=== PATIENT | male | born 1935 | race Two or more races ===

== ENCOUNTER 2016-12-08 12:50 | Inpatient (IN) | payer OTHER, MEDICARE ==
[~2016-12-08] VITALS: Ht 186.7 cm; Wt 114.8 kg
[2016-12-13] MEDS ORDERED: HYDR-3288 PO (07:06)
[2016-12-13] MEDS ORDERED: ENOX40P SQ (07:07)
[2016-12-13] MEDS ORDERED: ASPI81CH37 CHEW (07:07)
[2016-12-13] MEDS ORDERED: CHLORHEXIDINE GLUCONATE 2 % 1 PACK (2 CLOTHS) TOPICAL PRN (07:30)
[2016-12-13] MEDS ORDERED: INSULIN HUMAN REGULAR 1,000 UNITS/10 ML VIAL SQ PRN (07:30)
[2016-12-13] MEDS ORDERED: SODIUM CHLORID 0.9% 500 ML IV PRN (07:30)
[2016-12-13] MEDS ORDERED: POVIDONE IODINE 5% (ANTISEPSIS KIT) 4 APPLICATIONS EACH NARE PRN (07:30)
[2016-12-13] MEDS ORDERED: METOPROLOL TARTRATE 25 MG TAB PO PRN (07:30)
[2016-12-13] MEDS ORDERED: DEXAMETHASONE SOD PHOS 20 MG/5 ML VIAL IV SCH (07:30)
[2016-12-13] MEDS ORDERED: LACTATED RINGER'S 1000 ML IV PRN (07:30)
[2016-12-13] MEDS ORDERED: BENA10TA PO (07:43)
[2016-12-13] MEDS ORDERED: LEVO88TA2 PO (07:43)
[2016-12-13] MEDS ORDERED: MOBI7.5T PO (07:43)
[2016-12-13] MEDS ORDERED: ROPI0.25 PO (07:43)
[2016-12-13] MEDS ORDERED: OMEP40CA2 PO (07:43)
[2016-12-13] MEDS ORDERED: GABA300C5 PO (07:43)
[2016-12-13] MEDS ORDERED: APIX2.5T PO ×2 (07:43→10:54)
[2016-12-13] MEDS ORDERED: VANCOMYCIN 1000 MG/NS 250 ML (for <70 kg) IV SCH ×2 (07:45)
[2016-12-13] MEDS ORDERED: SODIUM CHLORIDE 0.9% IV SCH (07:45)
[2016-12-13] MEDS ORDERED: CHLORHEXIDINE GLUCONATE 4% SOLN 120 ML BTL TOPICAL SCH (07:45)
[2016-12-13] MEDS ORDERED: TRANEXAMIC ACID IV SCH (07:45)
[2016-12-13] MEDS ORDERED: ceFAZolin 1,000 MG/NS 100 ML IV SCH ×2 (07:45)
[2016-12-13] MEDS ORDERED: TRANEXAMIC PERI-ARTICULAR 3,000 MG/NS 100 ML P-ARTICULR SCH ×2 (07:45)
[2016-12-13] MEDS ORDERED: POVIDONE IODINE 7.5% SCRUB 118 ML BOTTLE TOPICAL SCH (07:45)
[2016-12-13] MEDS ORDERED: ROPIVACAINE PERI-ARTICULAR INJECTION. P-ARTICULR SCH ×5 (07:45)
[2016-12-13 07:59] VITALS: BP 177/79; PULSE 62; RESP 20; TEMP 99.3; O2SAT 99
[2016-12-13] MEDS ORDERED: NITR0.4S SL (08:33)
[2016-12-13] MEDS ORDERED: METO25TA3 PO (08:33)
[2016-12-13] MEDS ORDERED: GLIM1TAB PO (08:33)
[2016-12-13] MEDS ORDERED: MISC1CAP2 PO (08:33)
[2016-12-13] MEDS ORDERED: HYDR25TA5 PO (08:33)
[2016-12-13] MEDS ORDERED: CHOL1CAP6 PO (08:33)
[2016-12-13] MEDS ORDERED: TAMS0.4C4 PO (08:33)
[2016-12-13] MEDS: ceFAZolin 2 GM PREMIX 50 ML IV SCH ×2 (08:50→12:37)
[2016-12-13] MEDS ORDERED: PROPOFOL 200 MG/20 ML AMP IV ONE (09:10)
[2016-12-13] MEDS ORDERED: ePHEDrine/NS 25 MG/5 ML SYR IV ONE (09:11)
[2016-12-13] MEDS ORDERED: LACTATED RINGER'S 1000 ML INJ 1,000 ML IV ONE (09:11)
[2016-12-13 09:43] LABS: HEMATOCRIT 29.6 % (39.0-51.0); REVIEW FLAG FINAL
[2016-12-13] MEDS ORDERED: GENTAMICIN SULFATE 80 MG/2 ML VIAL ONE (09:43)
[2016-12-13] MEDS ORDERED: BUPIVACAINE LIPOSOME PF 1.3% 20 ML VIAL ONE (09:45)
[2016-12-13] MEDS ORDERED: diphenhydrAMINE HCL 50 MG/ML VIAL IV PRN (11:00)
[2016-12-13] MEDS ORDERED: ONDANSETRON HCL 4 MG/2 ML VIAL IVP PRN (11:00)
[2016-12-13] MEDS ORDERED: HYDROmorphone HCL PF 2 MG/ML VIAL IV PRN (11:00)
[2016-12-13] MEDS ORDERED: ALUMINUM/MAGNESIUM/SIMETH 30 ML CUP PO PRN (11:00)
[2016-12-13] MEDS ORDERED: NALOXONE HCL 0.4 MG/ML AMP IV PRN (11:00)
[2016-12-13] MEDS ORDERED: BISACODYL 10 MG SUPP RECTAL PRN (11:00)
[2016-12-13] MEDS ORDERED: Post-op Orders (for Pharmacy) MISC XX ONE (11:00)
[2016-12-13] MEDS ORDERED: ZOLPIDEM TARTRATE 5 MG TAB PO PRN (11:00)
[2016-12-13] MEDS ORDERED: SODIUM CHLORIDE 0.9% FLUSH 10 ML FLUSH IV FLUSH PRN (11:15)
[2016-12-13] MEDS: GABAPENTIN 300 MG CAP PO SCH ×2 (13:00→17:34)
[2016-12-13] MEDS: SODIUM CHLOR 0.9% 1000 ML INJ 1,000 ML IV SCH ×2 (13:25→19:31)
--- NOTE | 2016-12-13 13:35 | HHI.DCPOC ---
Discharge Care Plan Diagnosis: (1) Primary localized osteoarthrosis, lower leg Your Health Problems Are: Difficulty with ADL Goals to Promote Your Health * To prevent worsening of your condition and complications * To maintain your health at the optimal level Directions to Meet Your Goals Take your medications as prescribed Follow your dietary instruction Follow activity as directed Keep your appointments as scheduled Take your immunizations and boosters as scheduled If your symptoms worsen call your PCP, if no PCP go to Urgent Care Center or Emergency Room Smoking is Dangerous to Your Health. Avoid second hand smoke Call the 24-hour hour crisis hotline for domestic abuse at Liang Iglesias December 13, 2016 13:35
--- NOTE | 2016-12-13 13:37 | HHI.FF ---
Face to Face Verification Diagnosis: (1) Primary localized osteoarthrosis, lower leg Physical Therapy Gait training, Safety evaluation, Transfer training, bed to chair Knee: Total knee, Protocol: Right, Full weight bearing Right LE Weight Bearing: WB as tolerated Nursing Nursing: Dressing changes Dressing Changes: Daily dressing change I have seen patient Sebastian Cunningham on 12/13/16. My clinical findings support the need for the requested home health care services because: Limited ability to care for self High risk of falls I certify that my clinical findings support that this patient is homebound because: Post-op weakness Unsteady gait/balance Liang Iglesias December 13, 2016 13:37
[2016-12-13] MEDS ORDERED: MISC-163 (13:39)
[2016-12-13] MEDS ORDERED: CPMMACHINE (13:39)
[2016-12-13] MEDS ORDERED: WALKER WHEELS/F1 MIS (13:39)
--- NOTE | 2016-12-13 13:58 | RADRPT ---
EXAM DATE/TIME: 12/13/2016 13:22 [place] COMPARISON: No previous studies available for comparison. INDICATIONS : Post op right knee replacement. MEDICAL HISTORY : None. SURGICAL HISTORY : None. ENCOUNTER: Initial ACUITY: 1 day PAIN SCORE: Non-responsive. LOCATION: Right knee. FINDINGS: Patient is status post placement of a right knee prosthesis. There is good position and alignment of the prosthesis and bony structures. The bony structures are grossly intact. Postsurgical changes are present. CONCLUSION: Good position and alignment on this postoperative examination. Pola Christopher MD on December 13, 2016 at 13:55 Board Certified Radiologist. This report was verified electronically.
[2016-12-13 14:00] VITALS: BP 149/68; PULSE 64; RESP 18; TEMP 96.1; O2SAT 97
--- NOTE | 2016-12-13 17:33 | MP ---
cc: SAUL VALENTINE M.D. DATE OF SURGERY 12/13/2016 PREOPERATIVE DIAGNOSIS Right knee failed arthroplasty. POSTOPERATIVE DIAGNOSES Right knee failed arthroplasty. PROCEDURE Revision right total knee arthroplasty. SURGEON Dr. Saul Valentine. ENDOSCOPY TECHNICAN RADHA Brar ANESTHESIA General with an adductor canal block. ESTIMATED BLOOD LOSS 50 mL. COMPLICATIONS None. TOURNIQUET TIME 67 minutes at 250 mmHg. IMPLANTS USED DePuy Attune size 7 posterior stabilized femoral component, size 8 rotating platform tibia baseplate, size 5 mm polyethylene tibial insert, size 38 patella. JUSTIFICATION The patient is an 81-year male who has history right knee unicompartmental arthroplasty. He has had increasing pain in regards to his knee with failed conservative treatment over three months duration. Clinical exam reveals as well as x-rays confirmed the above-named findings. The patient counseled as to the risks, benefits and alternatives of the above-named proposed surgical procedure. The risks were discussed which include but not limited to anesthesia, bleeding, infection, damage to nerves, blood vessels, pain, stiffness, failure of components, blood clots, pulmonary embolism and even . The patient's pain is severe, he favored the benefits over the risks. He did wish to proceed with surgery. PROCEDURE IN DETAILS A written consent was obtained. The patient was identified by name, taken to the operating room and placed supine on the operating table. General anesthesia was administered as well as 2 grams of IV Ancef and 1 gram of IV vancomycin. A well-padded tourniquet placed on the right thigh. The right lower extremity prepped and draped using as isopropyl alcohol, Hibiclens solution and Chloraprep solution. After a time-out was performed an Esmarch bandage was used to exsanguinate the right lower extremity. Tourniquet inflated to 250 mmHg. A longitudinal incision was made over the anterior aspect of right knee. A medial parapatellar arthrotomy was performed. The patella was everted. A patellar resection guide was used to resect 9 mm of patella. A size 38 mm guide was placed. Three drill holes were placed and 38 mm trial fit well. Attention was turned the femur where an intramedullary guide brandon was placed within the femoral shaft. The distal femoral guide was set to remove 10 mm of distal femur, 5 degrees off the anatomic valgus axis alignment. An oscillating saw was used to perform a distal femoral cut. The femoral component arthroplasty was still in place and I had to resect 2 additional millimeters of distal femur in order to undermine the femoral component. The femoral component was then removed after primary cutting with the oscillating saw with the assistance of an osteotome and a bone tamp. Attention was turned to the tibia where an extramedullary tibial guide was placed. The guide was set to initially resect 7 mm of the lowest portion of the medial tibial plateau. The tibial guide set in place and tibia cut was initiated. Patella was not deepened off underneath the tibia baseplate and I resected 2 additional millimeters of tibia in order to get underneath the tibia baseplate with the oscillating saw. An elevator as well as a tamp was then used to remove the tibial component as well. A 5-mm spacer block showed full extension. Attention was turned back to the femur where the AP sizing block measured a size 7. The anterior reference 3 degree external rotation guide was used to pin a size [address]. Two anterior posterior chamfer cuts performed, size 7 ____ (3:01) with an oscillating saw. The medial and lateral meniscus remnants were removed as well as bone and soft tissue debris from the posterior portion of the knee. A size 8 tibia baseplate was pinned in place. Tibia was drilled (3:12) components were evaluated and final components were cemented in place. The 5 mm tibial insert the leg achieved full extension to 0 degrees and flexion 140. No evidence of tibial lift-off. Varus-valgus balance appeared appropriate and symmetric. The patella was noted to track centrally. The tourniquet was deflated. Bovie cautery was used for hemostasis. The knee was thoroughly irrigated again with sterile saline pulse lavage antibiotic solution. The arthrotomy incision was closed with #1 Vicryl suture. The subcutaneous layer with 2-0 Vicryl suture. Skin was closed Dermabond. Sterile dressing applied. The patient tolerated the procedure well. No intraoperative complications noted. Eduardo Iglesias, physician special events assistant-certified, was present during the entire surgical procedure to include patient positioning and the procedure itself. The medical necessity of physician special events assistant was indicated in this case due to the complexity of the procedure. He assisted with appropriate retraction of muscle, tendon, bone and neurovascular structures. He assisted with preparation of bone cuts and implantation of the prosthetic replacement. MD LOPEZ Boyer/FLAVIO /12:37 PM /5:05 PM
[2016-12-13] MEDS: ACETAMINOPHEN/HYDROcodone 325 MG/7.5 MG TAB PO PRN ×2 (17:40→21:47)
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
[2016-12-13 19:29] VITALS: O2SAT 99
[2016-12-13] MEDS: TAMSULOSIN HCL 0.4 MG CAP PO SCH (19:30)
[2016-12-13] MEDS: GLIMEPIRIDE 1 MG TAB PO SCH (19:31)
[2016-12-13] MEDS: METOPROLOL TARTRATE 25 MG TAB PO SCH (19:31)
[2016-12-13] MEDS: LISINOPRIL 10 MG TAB PO SCH (19:31)
[2016-12-13] MEDS: SODIUM CHLORIDE 0.9% FLUSH 10 ML FLUSH IV FLUSH SCH (19:31)
[2016-12-13 19:50] VITALS: BP 165/77; PULSE 72; RESP 18; TEMP 96.8; O2SAT 100
[2016-12-14] VITALS (10 sets, daily range): BP systolic 134–165; BP diastolic 61–85; PULSE 57–79; RESP 17–18; TEMP 97.5–98.6; O2SAT 94–99
[2016-12-14] MEDS: LEVOTHYROXINE SODIUM 88 MCG TAB PO SCH (05:19)
[2016-12-14] MEDS: SODIUM CHLOR 0.9% 1000 ML INJ 1,000 ML IV SCH ×3 (05:30→21:54)
[2016-12-14] MEDS ORDERED: DEXTROSE 50% IN WATER 50 ML VIAL(D50) IV PUSH PRN (06:15)
[2016-12-14] MEDS ORDERED: GLUCAGON 1 MG/ML VIAL OTHER PRN (06:15)
[2016-12-14 07:23] LABS: HEMATOCRIT 21.7 % (39.0-51.0); MEAN CORPUSCULAR HEMOGLOBIN 26.2 PG (27.0-34.0); MEAN CORPUSCULAR HGB CONC 33.6 % (32.0-36.0); PLATELET COUNT 212 TH/MM3 (150-450); RED BLOOD COUNT 2.79 MIL/MM3 (4.50-5.90); RED CELL DISTRIBUTION WIDTH 17.2 % (11.6-17.2); REVIEW FLAG FINAL; WHITE BLOOD COUNT 7.7 TH/MM3 (4.0-11.0)
[2016-12-14 07:53] LABS: BICARBONATE 21.7 MEQ/L (21.0-32.0); POTASSIUM 4.3 MEQ/L (3.5-5.1)
--- NOTE | 2016-12-14 08:17 | PD.ORT.PN ---
Subjective Post Op Day #: 1 Subjective Remarks knee is sore. Objective Vitals Vital Signs Date Time Temp Pulse Resp B/P Pulse Ox O2 Delivery O2 Flow Rate FiO2 12/14/16 04:25 98.0 71 17 145/66 98 12/14/16 00:00 97.7 77 17 152/70 99 12/13/16 19:50 96.8 72 18 165/77 100 12/13/16 19:29 99 Nasal Cannula 2.00 12/13/16 14:00 96.1 64 18 149/68 97 12/13/16 13:30 76 16 146/61 97 Nasal Cannula 2 12/13/16 13:15 77 16 141/62 99 Nasal Cannula 2 12/13/16 13:00 82 16 135/63 100 Simple Mask 8 12/13/16 12:57 97.8 90 16 130/56 99 Simple Mask 8 I/O 12/13/16 12/13/16 12/13/16 12/14/16 12/14/16 12/14/16 06:59 14:59 22:59 06:59 14:59 22:59 Intake Total 1000 ml 1473 ml 1507 ml Output Total 200 ml 675 ml 400 ml Balance 800 ml 798 ml 1107 ml Intake Oral 840 ml 480 ml IV Total 633 ml 1027 ml Other 1000 ml Output Urine Total 150 ml 675 ml 400 ml Estimated Blood Loss 50 ml # Bowel Movements 0 0 Result Diagram: 12/14/16 0557 12/14/16 0557 Imaging Last 24 hours Impressions Knee X-Ray 12/13/16 1050 Signed Impressions: Service Date/Time: Tuesday, December 13, 2016 13:22 - CONCLUSION: Good position and alignment on this postoperative examination. Pola Christopher MD Objective Remarks in bed, nad incision no erythema, no drainage neg homans nvi Assessment & Plan Ortho Post Op Day #: 1 Problem List: Assessment and Plan s/p revision R TKA wbat daily dressing changes eliquis - resume today d/c planning home with [facility] and pt rx in chart f/up dr. michael 2 weeks Liang Iglesias December 14, 2016 08:17
[2016-12-14] MEDS: HYDROCHLOROTHIAZIDE 25 MG TAB PO SCH (09:44)
[2016-12-14] MEDS: GABAPENTIN 300 MG CAP PO SCH ×3 (09:44→17:59)
[2016-12-14] MEDS: PANTOPRAZOLE SOD 40 MG DELAYED RELEASE TAB PO SCH (09:44)
[2016-12-14] MEDS: ACETAMINOPHEN/HYDROcodone 325 MG/7.5 MG TAB PO PRN ×2 (09:44→14:29)
[2016-12-14] MEDS: GLIMEPIRIDE 1 MG TAB PO SCH ×2 (09:44→21:53)
[2016-12-14] MEDS: LISINOPRIL 10 MG TAB PO SCH ×2 (09:44→21:54)
[2016-12-14] MEDS: METOPROLOL TARTRATE 25 MG TAB PO SCH ×2 (09:44→21:54)
[2016-12-14] MEDS: SODIUM CHLORIDE 0.9% FLUSH 10 ML FLUSH IV FLUSH SCH ×2 (09:45→21:54)
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
[2016-12-14] MEDS ORDERED: SODIUM CHLOR 0.9% 250 ML INJ 250 ML IV ONE (11:30)
[2016-12-14] MEDS ORDERED: ACETAMINOPHEN 325 MG TAB PO PRN (11:30)
[2016-12-14] MEDS ORDERED: diphenhydrAMINE HCL 25 MG CAP PO PRN (11:30)
[2016-12-14] MEDS ORDERED: FUROSEMIDE 20 MG/2 ML VIAL IV SCH (11:30)
[2016-12-14] MEDS: APIXABAN 2.5 MG TABLET PO SCH (12:00)
[2016-12-14] MEDS: DOCUSATE SODIUM 100 MG CAP PO SCH (21:54)
[2016-12-14] MEDS: MULTIVITAMINS/MINERALS THERAPEUTIC TAB PO SCH (21:54)
[2016-12-14] MEDS: TAMSULOSIN HCL 0.4 MG CAP PO SCH (21:54)
[2016-12-15 00:10] VITALS: BP 149/75; PULSE 60; RESP 17; TEMP 98.4; O2SAT 98
[2016-12-15 04:15] VITALS: BP 177/81; PULSE 64; RESP 17; TEMP 98.4; O2SAT 97
[2016-12-15] MEDS: ACETAMINOPHEN/HYDROcodone 325 MG/7.5 MG TAB PO PRN ×3 (04:17→15:20)
[2016-12-15] MEDS: LEVOTHYROXINE SODIUM 88 MCG TAB PO SCH (05:43)
[2016-12-15 05:49] VITALS: BP 156/68
--- NOTE | 2016-12-15 07:50 | PD.ORT.PN ---
Subjective Post Op Day #: 2 Subjective Remarks knee is sore. denies cp and sob. Objective Vitals Vital Signs Date Time Temp Pulse Resp B/P Pulse Ox O2 Delivery O2 Flow Rate FiO2 12/15/16 05:49 156/68 12/15/16 04:15 98.4 64 17 177/81 97 12/15/16 04:00 Room Air 12/15/16 00:10 98.4 60 17 149/75 98 12/15/16 00:00 Room Air 12/14/16 20:35 98.2 57 17 165/85 98 12/14/16 20:00 Room Air 12/14/16 18:11 98.1 66 18 152/76 97 12/14/16 17:00 97.7 61 18 156/69 98 12/14/16 14:13 97.8 70 18 164/69 97 12/14/16 13:58 97.5 79 18 134/61 97 12/14/16 12:00 98.6 71 18 140/69 98 12/14/16 10:08 94 21 12/14/16 08:00 97.9 70 18 140/70 99 I/O 12/14/16 12/14/16 12/14/16 12/15/16 12/15/16 12/15/16 07:00 15:00 23:00 07:00 15:00 23:00 Intake Total 1507 ml 720 ml 800 ml 480 ml Output Total 400 ml 1100 ml 550 ml Balance 1107 ml 720 ml -300 ml -70 ml Intake Oral 480 ml 720 ml 480 ml 480 ml IV Total 1027 ml Packed Cells 320 ml Output Urine Total 400 ml 1100 ml 550 ml # Voids 2 # Bowel Movements 0 0 0 Result Diagram: 12/14/16 0557 12/14/16 0557 Imaging Last 24 hours Impressions Knee X-Ray 12/13/16 1050 Signed Impressions: Service Date/Time: Tuesday, December 13, 2016 13:22 - CONCLUSION: Good position and alignment on this postoperative examination. Pola Christopher MD Objective Remarks in bed, nad dressing c/d/i neg homans nvi Assessment & Plan Ortho Post Op Day #: 2 Problem List: Assessment and Plan s/p revision R TKA wbat daily dressing changes eliquis - resume today transfused yesterday. hx of anemia with transfusion week prior to surgery. awaiting CBC from this morning. d/c planning home with [facility] and pt - cleared for d/c today. rx in chart f/up dr. michael 2 weeks Liang Iglesias December 15, 2016 07:50
[2016-12-15 07:58] LABS: HEMATOCRIT 27.9 % (39.0-51.0); MEAN CELL VOLUME 80.2 FL (80.0-100.0); MEAN CORPUSCULAR HEMOGLOBIN 26.9 PG (27.0-34.0); MEAN CORPUSCULAR HGB CONC 33.5 % (32.0-36.0); PLATELET COUNT 196 TH/MM3 (150-450); RED BLOOD COUNT 3.48 MIL/MM3 (4.50-5.90); RED CELL DISTRIBUTION WIDTH 17.2 % (11.6-17.2); REVIEW FLAG FINAL; WHITE BLOOD COUNT 6.1 TH/MM3 (4.0-11.0)
[2016-12-15 08:00] VITALS: BP 160/76; PULSE 63; RESP 18; TEMP 97.7; O2SAT 98
[2016-12-15 08:12] LABS: BICARBONATE 23.7 MEQ/L (21.0-32.0); POTASSIUM 4.3 MEQ/L (3.5-5.1)
[2016-12-15] MEDS: METOPROLOL TARTRATE 25 MG TAB PO SCH (09:18)
[2016-12-15] MEDS: SODIUM CHLORIDE 0.9% FLUSH 10 ML FLUSH IV FLUSH SCH (09:18)
[2016-12-15] MEDS: PANTOPRAZOLE SOD 40 MG DELAYED RELEASE TAB PO SCH (09:18)
[2016-12-15] MEDS: DOCUSATE SODIUM 100 MG CAP PO SCH (09:19)
[2016-12-15] MEDS: HYDROCHLOROTHIAZIDE 25 MG TAB PO SCH (09:19)
[2016-12-15] MEDS: LISINOPRIL 10 MG TAB PO SCH (09:19)
[2016-12-15] MEDS: GABAPENTIN 300 MG CAP PO SCH ×2 (09:19→13:47)
[2016-12-15] MEDS: GLIMEPIRIDE 1 MG TAB PO SCH (09:19)
[2016-12-15] MEDS: MULTIVITAMINS/MINERALS THERAPEUTIC TAB PO SCH (09:19)
[2016-12-15] MEDS: APIXABAN 2.5 MG TABLET PO SCH (10:58)
[2016-12-15 12:00] VITALS: BP 165/74; PULSE 62; RESP 18; TEMP 97.9; O2SAT 95
[2016-12-15] MEDS ORDERED: MAGNESIUM HYDROXIDE SUSP 30 ML CUP PO ONE (12:30)
[2016-12-15] MEDS: SODIUM CHLOR 0.9% 1000 ML INJ 1,000 ML IV SCH (13:00)
--- NOTE | 2016-12-15 14:20 | HHI.PR ---
Subjective Remarks Follow-up anemia, kidney disease. Patient reporting pain in his right knee. Otherwise no complaints at this time. Has been cleared for discharge home with home health care by orthopedic surgery. Objective Vitals Vital Signs Date Time Temp Pulse Resp B/P Pulse Ox O2 Delivery O2 Flow Rate FiO2 12/15/16 12:00 97.9 62 18 165/74 95 12/15/16 08:00 97.7 63 18 160/76 98 12/15/16 05:49 156/68 12/15/16 04:15 98.4 64 17 177/81 97 12/15/16 04:00 Room Air 12/15/16 00:10 98.4 60 17 149/75 98 12/15/16 00:00 Room Air 12/14/16 20:35 98.2 57 17 165/85 98 12/14/16 20:00 Room Air 12/14/16 18:11 98.1 66 18 152/76 97 12/14/16 17:00 97.7 61 18 156/69 98 I/O 12/14/16 12/14/16 12/14/16 12/15/16 12/15/16 12/15/16 07:00 15:00 23:00 07:00 15:00 23:00 Intake Total 1507 ml 720 ml 800 ml 480 ml Output Total 400 ml 1100 ml 550 ml Balance 1107 ml 720 ml -300 ml -70 ml Intake Oral 480 ml 720 ml 480 ml 480 ml IV Total 1027 ml Packed Cells 320 ml Output Urine Total 400 ml 1100 ml 550 ml # Voids 2 # Bowel Movements 0 0 0 Result Diagram: 12/15/16 0735 12/15/16 0735 Imaging Last Impressions Knee X-Ray 12/13/16 1050 Signed Impressions: Service Date/Time: Tuesday, December 13, 2016 13:22 - CONCLUSION: Good position and alignment on this postoperative examination. Pola Christopher MD Objective Remarks General: No acute distress. Sitting up in a chair. Heart: Regular rate and rhythm. No murmur. Lungs: Clear to auscultation bilaterally. No wheezes, rales, or rhonchi. Breathing is nonlabored. Abdomen: Soft, nontender, nondistended. Extremities: No lower extremity edema. Right knee surgical wound bandaged. Psych: Alert and oriented. Urinary Catheter: No Vascular Central Line Catheter: No A/P Problem List: (1) Primary localized osteoarthrosis, lower leg ICD Code: M17.10 Status: Chronic (2) COPD (chronic obstructive pulmonary disease) ICD Code: J44.9 Status: Chronic (3) Diabetes mellitus ICD Code: E11.9 Status: Chronic (4) Anemia ICD Code: D64.9 Status: Acute (5) Hypothyroidism ICD Code: E03.9 Status: Chronic (6) Hypertension ICD Code: I10 Status: Chronic Assessment and Plan 1. Osteoarthritis: Status post right total knee arthroplasty. Management per orthopedic surgery. Continue pain control, bowel regimen. 2. Anemia: Acute on chronic. Patient has chronic anemia and has had recent blood transfusion. Hemoglobin dropped following surgery and he received another transfusion of 2 units PRBCs. Hemoglobin is improved today. 3. Hypertension: Blood pressure is well controlled. Continue lisinopril, metoprolol, HCTZ, 4. Diabetes mellitus: Continue glimepiride. Monitor Accu-Cheks and cover with sliding scale insulin. 5. Hypothyroidism: Continue Synthroid. 6. DVT prophylaxis: Eliquis. Problem Qualifiers (1) Diabetes mellitus: Juan Nathan MD December 15, 2016 14:20
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
--- NOTE | 2016-12-21 08:23 | MD ---
cc: SAUL VALENTINE M.D. ADMISSION DATE: 12/13/2016 DISCHARGE DATE: 12/15/2016 ADMISSION DIAGNOSIS Failed unicompartmental right knee arthroplasty. DISCHARGE DIAGNOSIS Failed unicompartmental right knee arthroplasty. HISTORY OF PRESENT ILLNESS Mr. Cunningham is an 81-year-old male who has a history of a right knee unicompartmental arthroplasty performed out of town. The patient states that he has continued and progressive pain in the right knee. The patient in the past he has undergone conservative care including physical therapy, medications, assistive devices without significant relief of symptoms. He does have x-ray evidence of progression of his osteoarthritis in the patellofemoral compartment. While in the office the patient was counseled on his diagnosis and treatment options. The risks, benefits and indications were all discussed in great detail and the patient did elect to proceed with surgical intervention to include a revisional right total knee arthroplasty. DATE OF SURGERY 12/13/2016. PROCEDURE PERFORMED Revision right total knee arthroplasty. POSTOP After surgery the patient was admitted to [facility] where he received appropriate medical management, pain control, DVT prophylaxis as well as physical therapy. DISCHARGE Once being discharged from the hospital, patient has been cleared to go home where he will receive home health care and home physical therapy. He can weight-bear as tolerated. He is to receive daily dressing changes and has been instructed on appropriate wound care management. He has been provided prescriptions for pain control as well as DVT prophylaxis medication. The patient did take Eliquis preoperatively and has been resumed on his anticoagulation medication. He has also been provided a follow-up appointment to see Dr. Saul Valentine in the office, approximately two weeks from the date of surgery. The patient has asked appropriate questions which have been answered. The patient has been discharged. Dictated by: Eduardo Iglesias PA-C MD LOPEZ Boyer/LV /8:11 AM /8:22 AM
== END 2016-12-15 15:41 | disposition home or self-care (01) | DRG 467 ==
LOC: HSDI 12-13 06:49 → N06B 12-13 13:56
PROVIDERS: ADMIT Orthopaedic Surgery Sports Medicine; ATTEND Orthopaedic Surgery Sports Medicine
PROC: 0SPC09Z Removal of Liner from Right Knee Joint, Open Approach (ICD-10-PCS; 2016-12-13)
PROC: 3E0T3CZ (ICD-10-PCS; 2016-12-13)
PROC: 0SRC0J9 Replacement of Right Knee Joint with Synthetic Substitute, Cemented, Open Approach (ICD-10-PCS; principal; 2016-12-13 09:57)
PROC: 30233N1 Transfusion of Nonautologous Red Blood Cells into Peripheral Vein, Percutaneous Approach (ICD-10-PCS; 2016-12-14)
DX: T84.092A Other mechanical complication of internal right knee prosthesis, initial encounter (principal); D62 Acute posthemorrhagic anemia; E11.22 Type 2 diabetes mellitus with diabetic chronic kidney disease; J44.9 Chronic obstructive pulmonary disease, unspecified; I48.91 Unspecified atrial fibrillation; G25.81 Restless legs syndrome; I12.9 Hypertensive chronic kidney disease with stage 1 through stage 4 chronic kidney disease, or unspecified chronic kidney disease; E03.9 Hypothyroidism, unspecified; N28.9 Disorder of kidney and ureter, unspecified; E78.5 Hyperlipidemia, unspecified; I25.10 Atherosclerotic heart disease of native coronary artery without angina pectoris; N18.3 Chronic kidney disease, stage 3 (moderate); D64.9 Anemia, unspecified; Z79.01 Long term (current) use of anticoagulants; Z79.84 Long term (current) use of oral hypoglycemic drugs
CPT/HCPCS: 36430; 73560; 80048; 82948; 85014; 85018; 85027; 86850; 86900; 86901; 86920; 94150; C1776; C9290; J0171; J0690; J0735; J1100; J1580; J1885; J1940; J2795; J3370; J7030; J7050; J7120; L1830; P9016